=== PATIENT | male | born 2005 | race African-American/Black ===

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

== ENCOUNTER 2025-05-04 08:55 | Emergency (ER) | payer SELFPAY ==
[~2025-05-04] VITALS: Ht 175.2 cm; Wt 95.3 kg
[~2025-05-04 08:55] MED LIST: CLINDAMYCIN HC300 MG PO
== END 2025-05-04 11:39 | disposition home or self-care (01) ==
LOC: ED 08:55
DX: J02.9 Acute pharyngitis, unspecified (principal); R42 Dizziness and giddiness